=== PATIENT | male | born 1960 | race Asian ===

== ENCOUNTER 2024-04-28 14:16 | Emergency (ER) | payer OTHER ==
[2024-04-28 14:16] VITALS: BP 64/42
[2024-04-28] MEDS ORDERED: DEXTROSE 50%-WATER 25 GM/50 ML SYRINGE IVP ONE (14:17)
[2024-04-28] MEDS ORDERED: SODIUM BICARBONATE [ADULT] 8.4% 50 MEQ/50 ML SYRINGE IVP ONE (14:17)
[2024-04-28] MEDS ORDERED: EPINEPHrine 1:10,000 [1 MG/10 ML] SYRINGE IVP ONE (14:17)
[2024-04-28 14:20] VITALS: PULSE 77; RESP 20; O2SAT 70
== END 2024-04-28 19:03 ==
LOC: EMS 14:16
DX: I46.9 Cardiac arrest, cause unspecified (principal); J96.01 Acute respiratory failure with hypoxia; I50.9 Heart failure, unspecified; I49.01 Ventricular fibrillation; Z66 Do not resuscitate; Z95.5 Presence of coronary angioplasty implant and graft; Z51.5 Encounter for palliative care
CPT/HCPCS: 99285; 92950; 31500; 71045; J0171; J3490; 94002; 99291